=== PATIENT | female | born 1985 | race Caucasian/White ===

== ENCOUNTER 2018-08-29 09:34 | Emergency (ER) | payer OTHER ==
[~2018-08-29] VITALS: Ht 154.9 cm; Wt 77.1 kg
[2018-08-29] MEDS ORDERED: FLAGYL500 M1 PO (09:47)
[2018-08-29 10:49] LABS: HEMATOCRIT 44.5 % (37.0-47.0); MCH 29.1 pg (26.0-34.0); MCHC 33.8 g/dL (28.0-37.0); MCV 86.1 fL (80.0-100.0); RBC 5.17 mil/uL (4.20-5.00); RDW 13.9 % (10.5-14.5); WBC 9.9 thou/uL (4.0-11.0)
[2018-08-29 10:58] LABS: CALCIUM 9.6 mg/dL (8.5-10.1); CREATININE 0.9 mg/dL (0.6-1.0); POTASSIUM 3.9 mmol/L (3.5-5.1)
[2018-08-29 11:25] VITALS: BP 127/79
[2018-08-29] MEDS ORDERED: TRIMETHOPRIM /P10 M1 OPHTHALMIC (11:46)
== END 2018-08-29 12:13 | disposition home or self-care (01) ==
LOC: ER 09:34
PROVIDERS: Emergency Medicine
DX: H10.9 Unspecified conjunctivitis (principal); Z88.1 Allergy status to other antibiotic agents